=== PATIENT | female | born 1995 | race American Indian/Alaskan Native ===

== ENCOUNTER 2017-03-29 06:52 | Day surgery (SDC) | payer OTHER, MEDICAID ==
[~2017-03-29 06:52] MED LIST: NACL 0.9% 1000 ML 1,000 ML IV SCH; PEPCID PO NR; VERSED IV NR
[2017-03-29] MEDS ORDERED: DIPRIVAN 10 MG/ML IV ONE (07:08)
[2017-03-29] MEDS ORDERED: SUBLIMAZE ONE (07:08)
[2017-03-29] MEDS ORDERED: MARCAINE 0.5% 0 ML INFILTRATI ONE (07:14)
[2017-03-29] MEDS ORDERED: XYLOCAINE 1%/ EPI 1:100,000 INFILTRATI ONE (07:14)
[2017-03-29] MEDS ORDERED: PEPCID IV NR (07:48)
--- NOTE | 2017-03-29 07:54 | Anesthesia Consultation ---
Anesthesia Consult and Med Hx Date of service: 03/29/17 (Excision of Skin from Groin) - Airway Anesthetic Teeth Evaluation: Good ROM Head & Neck: Adequate Mental/Hyoid Distance: Adequate Mallampati Class: Class I Intubation Access Assessment: Good - Pulmonary Exam CTA: Yes - Cardiac Exam Cardiac Exam: No Murmur - Pre-Operative Health Status ASA Pre-Surgery Classification: ASA1 Proposed Anesthetic Plan: General - Pulmonary Hx Smoking: No Hx Asthma: Yes ( A CHILD) Hx Respiratory Symptoms: No SOB: No COPD: No Home Oxygen Therapy: No Hx Pneumonia: No Hx Sleep Apnea: No - Cardiovascular System Hx Hypertension: No Hx Coronary Artery Disease: No Hx Heart Attack/AMI: No Hx Angina: No Hx Percutaneous Transluminal Coronary Angioplasty (PTCA): No - Central Nervous System Hx Psychiatric Problems: No - Endocrine Hx Renal Disease: No Hx End Stage Renal Disease: No Hx Cirrhosis: No Hx Liver Disease: No Hx Insulin Dependent Diabetes: No Hx Non-Insulin Dependent Diabetes: No Hx Thyroid Disease: No Hx Hypothyroidism: No Hx Hyperthyroidism: No - Other Systems Hx Alcohol Use: Yes (once per week, wine) Hx Substance Use: No Hx Cancer: No Hx Obesity: No - Additional Comments Anesthesia Medical History Comments: Epideral x 2 for child delivery without problems. Patient has been instructed by Dr. Chiu to not breast feed for two weeks due to taking antibiotics
[2017-03-29] MEDS ORDERED: LACTATED RINGERS 1,000 ML IV SCH (08:00)
[2017-03-29] MEDS ORDERED: ANCEF/STERILE WATER 2 GM/20 ML IV NR (08:05)
[2017-03-29 08:57] LABS: Hematocrit 36.9 % (30.3-42.9); Hemoglobin 11.7 gm/dl (10.1-14.3)
[2017-03-29] MEDS ORDERED: VERSED IV NR (09:00)
[2017-03-29] MEDS ORDERED: BENADRYL ONE (09:10)
[2017-03-29] MEDS ORDERED: XYLOCAINE MPF 2% ONE (09:10)
[2017-03-29] MEDS ORDERED: ZOFRAN ONE (09:10)
[2017-03-29] MEDS ORDERED: NACL 0.9% IR ONE (09:12)
[2017-03-29] MEDS ORDERED: DILAUDID ONE (09:42)
[2017-03-29] MEDS ORDERED: LACTATED RINGERS 1,000 ML ONE (10:02)
[2017-03-29] MEDS ORDERED: ZOFRAN IV PRN (10:26)
[2017-03-29] MEDS: MORPHINE IV PRN ×2 (10:34→10:46)
[2017-03-29 10:52] VITALS: BP 120/74
--- NOTE | 2017-03-29 11:16 | Post Anesthesia Evaluation ---
- Post Anesthesia Evaluation Patient Participated: Yes Airway Patent: Yes Stable Respiratory Function: Yes Nausea/Vomiting: No Temp > 96.8F: Yes Pain Manageable: Yes Adequeate Hydration: Yes Anesthesia Complications: No
[2017-03-29] MEDS ORDERED: NORCO 5/325 PO PRN (11:30)
--- NOTE | 2017-03-29 14:32 | Discharge Summary ---
Short Stay Discharge Plan Activity: no restrictions Weight Bearing Status: Full Weight Bearing Diet: regular Wound: remove dressing (72hrs), other (Daily showers beginning on Wednesday) Additional Instructions: MAY SHOWER NO TUB BATHS. DO NOT CHANGE DRESSING. Follow up with: PRIMARY CAREMD [Primary Care Provider] - 10/25/17 WORK,SCOUT Hodge JR, MD [Staff Physician] - 7 Days Forms: Outpatient Surgery DC Inst.
--- NOTE | 2017-03-29 14:35 | Short Stay Summary ---
Short Stay Documentation Date of service: 03/29/17 - Allergies and Medications Current Medications: Allergies No Known Allergies Allergy (Unverified 03/25/17 09:27) Home Medications Medication Instructions Recorded Confirmed Last Taken Type Vit No.130/Iron/FA 1 each PO QDAY 03/25/17 03/29/17 03/15/17 History [ Tablet] Active Medications Cefazolin Sodium (Ancef/Sterile Water 2 Gm/20 Ml) 2 gm IV PREOP NR Stop: 03/29/17 23:59 Famotidine (Pepcid) 20 mg IV PREOP NR Stop: 03/29/17 23:59 Last Admin: 03/29/17 08:28 Dose: 20 mg Lactated Ringer's (Lactated Ringers) 1,000 mls @ 100 mls/hr IV DIRECT VENKATA Stop: 03/29/17 23:59 Last Admin: 03/29/17 07:15 Dose: 100 mls/hr Morphine Sulfate (Morphine) 2 mg IV Q10MIN PRN PRN Reason: Pain, Moderate (4-6) Stop: 03/29/17 18:00 Last Admin: 03/29/17 10:46 Dose: 2 mg - Brief post op/procedure progress note Date of procedure: 03/29/17 Pre-op diagnosis: Hidradenitis Suppurativa Post-op diagnosis: same Procedure: Excision of HS from Bilateral Groins,Rt Labia Majora,Rt Perineum complex closure of Groins ~17cm and Adjacent Tissue Transfer >50cm2 Surgeon: SCOUT CURIEL JR Estimated blood loss: minimal Specimen disposition: to lab Condition: stable - Disposition Condition at discharge: Good Disposition: DISCHARGED TO HOME OR SELFCARE Short Stay Discharge Plan Additional Instructions: MAY SHOWER NO TUB BATHS. DO NOT CHANGE DRESSING. Follow up with: SCOUT CURIEL JR, MD [Staff Physician] - 7 Days PRIMARY CAREMD [Primary Care Provider] - 10/25/17 Forms: Outpatient Surgery DC Inst.
--- NOTE | 2017-03-29 17:12 | Operative Report ---
PREOPERATIVE DIAGNOSIS: Hidradenitis suppurativa of bilateral groins, right labia majora and right perianal region. POSTOPERATIVE DIAGNOSIS: Hidradenitis suppurativa of bilateral groins, right labia majora and right perianal region. PROCEDURE: 1. Excision of hidradenitis suppurativa of bilateral groins. 2. Excision of hidradenitis suppurativa of the perineum. 3. Complex closure of groins 17 cm. 4. Adjacent tissue transfer closure of the perineum and right groin 50 square cm. SURGEON: Richard Chiu MD REFERRAL MANAGEMENT LIAISON: Franc Low CSA DESCRIPTION OF PROCEDURE: The patient was brought to the operating room and placed on the table in supine position. Following administration of general anesthesia, the patient was placed into a frogleg position, prepped with the Betadine solution and draped in usual sterile manner. A #10 blade scalpel was used to circumferentially excise all of the affected areas of skin of bilateral groins, right labia majora and right perianal region, sent to pathology as specimen. Hemostasis controlled using the electrocautery. Wounds were irrigated with copious amounts of normal saline followed by closure of groin skin incisions and of the right labia majora using interrupted 2-0 Monocryl sutures followed by herbert. The large defect of the right perianal region of the perineum and part of the groin incision were closed in layers using interrupted 2-0 Monocryl sutures and herbert after undermining and rotation and advancement of tissue across the defect without undue tension. The patient tolerated the procedure well and returned to recovery room in stable condition. JOB# [id number] FTW/NTS
== END 2017-03-29 06:53 | disposition home or self-care (01) ==
LOC: OR 06:52
PROVIDERS: ATTEND Plastic Surgery
DX: L73.2 Hidradenitis suppurativa (principal); J45.909 Unspecified asthma, uncomplicated; Z72.89 Other problems related to lifestyle; Z82.49 Family history of ischemic heart disease and other diseases of the circulatory system
CPT/HCPCS: 11471; 14301; 36415; 81025; 85014; 85018; 88305; J0690; J1170; J1200; J2250; J2270; J2405; J2704; J3010; J7120